=== PATIENT | male | born 1990 | race African-American/Black ===

== ENCOUNTER 2018-11-04 16:20 | Emergency (ER) | payer OTHER ==
[~2018-11-04] VITALS: Ht 177.8 cm; Wt 100.0 kg
[2018-11-04] MEDS ORDERED: IBUPROFEN 600 MG TABLET PO ONE (18:30)
[2018-11-04 19:24] VITALS: BP 125/67
== END 2018-11-04 19:39 | disposition home or self-care (01) ==
LOC: EMS 16:22
DX: M76.61 Achilles tendinitis, right leg (principal)